=== PATIENT | female | born 1980 | race Caucasian/White ===

== ENCOUNTER → 2020-01-19 10:04 | Outpatient (CLI) | payer OTHER, SELFPAY ==
--- NOTE | ~2020-01-19 | MM_ITS ---
EXAMINATION: MM screening aditya BI w buffy HISTORY: Screening mammogram TECHNIQUE: Craniocaudal and mediolateral oblique 3-D tomosynthesis images were obtained and synthetic 2-D images were generated. CAD analysis was submitted and interpreted. COMPARISON: None, baseline BREAST PARENCHYMAL COMPOSITION: The breasts are heterogeneously dense, which may obscure small masses . FINDINGS: RIGHT BREAST: There is no evidence of suspicious mass, calcification, or architectural distortion to suggest malignancy. LEFT BREAST: An asymmetry is present in the posterior third of the central breast on the craniocaudal view 8 cm from the nipple. IMPRESSION: 1. Left breast asymmetry on the craniocaudal view. 2. Additional mammographic views and possible breast ultrasound are recommended to evaluate for malig patric and establish a baseline given that this is the first mammographic examination. BI-RADS Category 0: Incomplete: Needs additional imaging evaluation. Reviewed, dictated and finalized at location A. IMPRESSION: 1. Left breast asymmetry on the craniocaudal view. 2. Additional mammographic views and possible breast ultrasound are recommended to evaluate for malignancy and establish a baseline given that this is the fir st mammographic examination. BI-RADS Category 0: Incomplete: Needs additional imaging evaluation.
== END ==
PROVIDERS: Visit Provider Nurse Practitioner Psychiatric/Mental Health
DX: Z12.31 Encounter for screening mammogram for malignant neoplasm of breast (principal); R92.8 Other abnormal and inconclusive findings on diagnostic imaging of breast
CPT/HCPCS: 77063; 77067

== ENCOUNTER → 2020-01-30 14:02 | Outpatient (CLI) | payer OTHER, SELFPAY ==
--- NOTE | ~2020-01-30 | MMUS_ITS ---
EXAMINATION: MM diagnostic mammo unilat LT, US breast LT complete HISTORY: Follow-up left breast asymmetry TECHNIQUE: Additional 3-D tomosynthesis images of the left breast were performed and synthetic 2-D im ages were generated. CAD analysis was submitted and interpreted. High resolution left breast ultrasou nd was performed. COMPARISON: 01/19/2020 FINDINGS: MAMMOGRAPHIC FINDINGS: There are multiple focal asymmetries centered in the upper central aspect of the left breast which ar e obscured by dense fibroglandular tissue. There are no suspicious calcifications. ULTRASOUND: Left breast ultrasound: There are multiple simple and complicated cyst of the left breast, largest measuring 7 mm at 2:00, 3 cm from the nipple. There is a cluster of microcysts at 11:00, 6 cm from the nipple. There is an intr amammary lymph node at 11:00, 7 cm from the nipple measuring 9 mm. No suspicious masses are identifie d to suggest malignancy. IMPRESSION: 1. Multiple benign cysts and intramammary lymph nodes identified by ultrasound likely corresponding t o mammographic findings. 2. Recommend 6 month follow-up diagnostic left mammogram and ultrasound. BI-RADS category 3, probably benign findings. Reviewed, dictated and finalized at location A. IMPRESSION: 1. Multiple benign cysts and intramammary lymph nodes identified by ultrasound likely corresponding to mammographic findings. 2. Recommend 6 month follow-up diagnostic left mammogram and ultrasound. BI-RADS category 3, probably benign findings.
== END ==
PROVIDERS: Visit Provider Nurse Practitioner Psychiatric/Mental Health
DX: N64.89 Other specified disorders of breast (principal); R92.8 Other abnormal and inconclusive findings on diagnostic imaging of breast
CPT/HCPCS: 76641; 77065

== ENCOUNTER → 2021-02-07 10:24 | Outpatient (CLI) | payer OTHER, SELFPAY ==
--- NOTE | ~2021-02-07 | MM_ITS ---
EXAMINATION: MM screening aditya BI w buffy HISTORY: Screening mammogram, overdue for follow-up of probably benign left breast masses TECHNIQUE: Craniocaudal and mediolateral oblique 3-D tomosynthesis images were obtained and synthetic 2-D images were generated. CAD analysis was submitted and interpreted. COMPARISON: 01/30/2020, 01/29/2020 BREAST PARENCHYMAL COMPOSITION: The breasts are heterogeneously dense, which may obscure small masses . FINDINGS: RIGHT BREAST: There is no evidence of suspicious mass, calcification, or architectural distortion to suggest malignancy. There has been no significant interval change. LEFT BREAST: There are obscured masses in the middle and posterior third of the upper outer quadrant of the left breast. Some appear decrease in size since the comparison examination and some appear new . IMPRESSION: 1. Left breast masses. 2. Additional mammographic views and possible breast ultrasound are recommended. BI-RADS Category 0: Incomplete: Needs additional imaging evaluation. Reviewed, dictated and finalized at location A. IMPRESSION: 1. Left breast masses. 2. Additional mammographic views and possible breast ultrasound are recommended . BI-RADS Category 0: Incomplete: Needs additional imaging evaluation.
== END ==
PROVIDERS: PCP Family Medicine Sports Medicine; Visit Provider Family Medicine Sports Medicine
DX: Z12.31 Encounter for screening mammogram for malignant neoplasm of breast (principal); R92.8 Other abnormal and inconclusive findings on diagnostic imaging of breast
CPT/HCPCS: 77063; 77067

== ENCOUNTER → 2022-02-13 10:12 | Outpatient (CLI) | payer BC, SELFPAY ==
--- NOTE | ~2022-02-13 | MM_ITS ---
EXAMINATION: MM screening aditya BI w buffy HISTORY: Screening TECHNIQUE: Craniocaudal and mediolateral oblique 3-D tomosynthesis images were obtained and synthetic 2-D images were generated. CAD analysis was submitted and interpreted. COMPARISON: Comparison to multiple prior studies sequentially, with oldest reviewed study dated 07/2020. BREAST PARENCHYMAL COMPOSITION: The breasts are heterogeneously dense, which may obscure small masses . FINDINGS: There are developing bilateral breast asymmetries centered in the central and lateral aspec t of the right breast on CC and exaggerated CC views and the upper central aspect of the left breast. IMPRESSION: 1. Developing bilateral breast asymmetries. 2. Additional mammographic views and possible breast ultrasound are recommended. BI-RADS Category 0: Incomplete: Needs additional imaging evaluation. Reviewed, dictated and finalized at location A. IMPRESSION: 1. Developing bilateral breast asymmetries. 2. Additional mammographic views and possible breast ultrasound are recommended . BI-RADS Category 0: Incomplete: Needs additional imaging evaluation.
== END ==
PROVIDERS: PCP Family Medicine Sports Medicine; Visit Provider Family Medicine Sports Medicine
DX: Z12.31 Encounter for screening mammogram for malignant neoplasm of breast (principal)
CPT/HCPCS: 77063; 77067

== ENCOUNTER → 2022-02-23 09:11 | Outpatient (CLI) | payer BC, SELFPAY ==
--- NOTE | ~2022-02-23 | MMUS_ITS ---
EXAMINATION: MM diagnostic aditya BI w buffy, US breast BI complete HISTORY: Follow-up breast asymmetries TECHNIQUE: Additional 3-D tomosynthesis images of the breasts were performed and synthetic 2-D images were generated. CAD analysis was submitted and interpreted. High resolution complete bilateral breas t ultrasound was performed. COMPARISON: Comparison to multiple prior studies sequentially, with oldest reviewed study dated 07/2020. BREAST PARENCHYMAL COMPOSITION: The breasts are heterogenously dense, which may obscure small masses FINDINGS: MAMMOGRAPHIC FINDINGS: There are no discrete masses, suspicious cluster of calcifications or architectural distortion in the right breast to suggest malignancy. There is a focal mass in the upper central aspect of the left br east posteriorly, best seen on CC view. ULTRASOUND: Complete bilateral US of all 4 quadrants of the breasts and retroareolar region was reviewed. Right breast: At 12:00, 6 cm from the nipple there is a cluster of microcysts measuring 8 mm. At 12:0 0, 6 cm from the nipple there is a cluster of microcysts measuring 3 mm. At 12:00, 5 cm from the nipp le there is an oval hypoechoic mass measuring 7 mm, likely benign with parallel orientation, no inter nal vascularity and no posterior features. At 12:00, 3 cm from the nipple there is a 7 mm cyst. At 2: 00, 3 cm from the nipple there is a 4 mm cyst. At 8:00, 5 cm from the nipple there is an 8 mm complic ated at 9:00, 4 cm from the nipple there is a cluster of cysts measuring up to 6 mm. O'clock, 4 cm from the nipple there is an oval circumscribed hypoechoic mass with low level internal echoes measuring 6 mm. No internal vascularity or posterior features, likely benign. At 10:00, 8 cm f rom the nipple there is a 4 mm cyst. At 10:00, 7 cm from the nipple there is a 6 mm hypoechoic mass w ith echogenic hilum, possibly benign intramammary lymph node or cluster of microcysts. At 11:00, 8 cm from the nipple there is a probable benign intramammary lymph node measuring 8 mm. At 11:00, 6 cm fr om the nipple there is a cluster of cysts measuring up to 9 mm. There are the nipple there is a compl icated cyst measuring 7 mm. Left breast: There are multiple cysts of the left breast. There is a cluster of microcysts at 12:00, 5 cm from the nipple measuring 1 cm greatest dimension. At 1:00, 5 cm from the nipple there is an ova l hypoechoic mass measuring 8 mm with echogenic hilum, possibly intramammary lymph node. At 3:00, 4 c m from the nipple there is an oval hypoechoic mass measuring 6 mm, likely benign. At 10:00, 7 cm from the nipple there is an oval hypoechoic mass with echogenic hilum measuring 8 mm, likely benign lymph node. At 11:00, 3 cm from the nipple there is an oval hypoechoic mass with parallel orientation, no posterior features or internal vascularity, likely benign. Cyst. IMPRESSION: 1. Multiple bilateral breast masses demonstrated by ultrasound, likely benign, as described above. 2. 6 month follow-up bilateral breast ultrasound recommended. BI-RADS category 3, probably benign findings. Reviewed, dictated and finalized at location A. IMPRESSION: 1. Multiple bilateral breast masses demonstrated by ultrasound, likely benign, as described above. 2. 6 month follow-up bilateral breast ultrasound recommended. BI-RADS category 3, probably benign findings.
== END ==
PROVIDERS: Visit Provider Family Medicine Sports Medicine
DX: R92.8 Other abnormal and inconclusive findings on diagnostic imaging of breast (principal)
CPT/HCPCS: 76641; 77062; 77066; G0279

== ENCOUNTER 2024-09-15 10:26 | Outpatient (CLI) | payer BC, SELFPAY ==
--- NOTE | ~2024-09-15 | MR_ITS ---
MRI of the brain Clinical History: Dizziness, dysarthria Technique: Axial and sagittal T1-weighted images were acquired. These were followed by axial T2-weigh nathan, diffusion weighted, gradient, and FLAIR images. Following intravenous administration of 15 cc M ultiHance gadolinium, T1-weighted fat-sat imaging was performed in the axial and coronal planes. Findings: There is no abnormal signal in the brain parenchyma. No acute infarct, internal hemorrhage or mass lesion seen. Ventricles and subarachnoid spaces are unremarkable. Orbits are unremarkable. Paranasal sinuses and m astoid air cells are clear. Major intracranial flow voids are intact. Sagittal midline structures are intact. No abnormal postcontrast enhancement. IMPRESSION: Unremarkable exam. Reviewed, dictated and finalized at location M. BULANCE ASSISTANT IMPRESSION: Unremarkable exam.
== END 2024-09-15 10:27 | disposition home or self-care (01) ==
PROVIDERS: PCP Nurse Practitioner; Visit Provider Nurse Practitioner
DX: R47.1 Dysarthria and anarthria (principal)
CPT/HCPCS: 70553; A9577

== ENCOUNTER 2024-11-10 08:45 | Outpatient (CLI) | payer BC, SELFPAY ==
--- NOTE | ~2024-11-10 | MR_ITS ---
EXAMINATION: MR cervical spine wo/w con, MRA neck wo/w con, MR thoracic spine wo/w con DATE: 11/10/2024 10:49 INDICATION: Hyperreflexia. Vertebral artery thrombosis. TECHNIQUE: 1. Magnetic resonance imaging (MRI) of the cervical spine was performed without and with 16 mL Multih ance intravenous contrast. Sequences included sagittal T2-weighted FSE, sagittal T2-weighted FS FSE, sagittal T1-weighted FSE, axial T2-weighted FSE, and axial T1-weighted SE. Postcontrast sequences inc luded sagittal T1-weighted FS FSE, and axial T1-weighted FS SE. 2. MRI of the thoracic spine was performed without and with the identical 16 mL MultiHance intravenou s contrast bolus. Sagittal localizer T1-weighted FSE of the cervicothoracic spine was obtained. Seque nces included sagittal T2-weighted FSE, sagittal T2-weighted FS FSE, sagittal T1-weighted FSE and axi al T1-weighted SE. Postcontrast sequences included axial T2-weighted FSE, sagittal T1-weighted FS FSE , and axial T1-weighted FS SE. 3. Magnetic resonance angiography (MRA) of the neck was performed without and with the identical 16 m L Multihance intravenous contrast bolus. Sequences included axial 2D-time of flight T1-weighted FSPGR and coronal T1-weighted FSPGR without and with intravenous contrast. COMPARISON: None. FINDINGS: Neck MR angiogram: The visualized aortic arch and the great vessels arising from the arch are normal in caliber with no hemodynamically significant stenosis or dissection. There is 0% stenosis of the right and left caroti d bulbs relative to normal distal artery lumen diameter (NASCET criteria). The left vertebral artery is mildly dominant with no hemodynamically significant stenosis. Cervical spine: Straightening of the normal cervical lordosis. Vertebral body heights are normal. Bone marrow signa l intensity is normal. Moderate disc height loss at C4-C5 and C5-C6. Annular fissure at C5-C6. Cord s ignal intensity is normal. No abnormally enhancing lesions identified. The following disc levels are specifically discussed: C2-C3: The disc does not extend beyond the endplate margin. There is no uncovertebral joint osteoarth ritis. There is right and mild left facet joint osteoarthritis. There is no neural foraminal stenosis . There is no central canal stenosis. C3-C4: Disc is bulging. There is mild bilateral uncovertebral joint osteoarthritis. There is moderate bilateral facet joint osteoarthritis. There is mild left neural foraminal stenosis. There is mild ce ntral canal stenosis. C4-C5: Disc is bulging. There is no uncovertebral joint osteoarthritis. There is mild bilateral facet joint osteoarthritis. There is no neural foraminal stenosis. There is mild central canal stenosis. C5-C6: Disc is bulging, eccentric to the left with mild indentation of the left ventral surface of th e cord. There is mild right and moderate left uncovertebral joint osteoarthritis. There is mild right and moderate left facet joint osteoarthritis. There is mild left and minimal right neural foraminal stenosis. There is mild central canal stenosis. C6-C7: The disc does not extend beyond the endplate margin. There is mild left uncovertebral joint os teoarthritis. There is mild bilateral facet joint osteoarthritis. There is mild left neural foraminal stenosis. There is no central canal stenosis. C7-T1: The disc does not extend beyond the endplate margin. There is no uncovertebral joint osteoarth ritis. There is moderate right and moderate left facet joint osteoarthritis. There is no neural lorena inal stenosis. There is no central canal stenosis. Thoracic spine: 5 degrees thoracic levocurvature. Sagittal alignment is normal. Vertebral body and disc heights are n ormal. There is normal bone marrow signal throughout. The discs do not extend beyond the endplate mar gins. There is no central canal stenosis. The conus terminates at L2. There is normal cord signal thr oughout. There are no abnormally enhancing lesions identified. There is multilevel mild to moderate t horacic facet osteoarthritis greatest in the mid to lower thoracic spine. No significant neural lorena inal stenosis. Mild atelectasis in the dependent lungs. Paravertebral soft tissues are unremarkable. IMPRESSION: 1. Mild cervical spondylosis. 2. 5 degrees thoracic levocurvature with multilevel mild to moderate facet osteoarthritis. 3. Unremarkable MR angiogram of the neck with no significant stenosis of the bilateral vertebral lelo ambreen and 0% stenosis of the right and left carotid bulbs relative to normal distal artery lumen diame ter (NASCET criteria). Reviewed, dictated and finalized at location B. THESIOLOGY FELLOW IMPRESSION: 1. Mild cervical spondylosis. 2. 5 degrees thoracic levocurvature with multilevel mild to moderate facet oste oarthritis. 3. Unremarkable MR angiogram of the neck with no significant stenosis of the bi lateral vertebral arteries and 0% stenosis of the right and left carotid bulbs relative to normal distal artery lumen diameter (NASCET criteria). IMPRESSION: 1. Mild cervical spondylosis. 2. 5 degrees thoracic levocurvature with multilevel mild to moderate facet oste oarthritis. 3. Unremarkable MR angiogram of the neck with no significant stenosis of the bi lateral vertebral arteries and 0% stenosis of the right and left carotid bulbs relative to normal distal artery lumen diameter (NASCET criteria).
== END 2024-11-10 08:46 | disposition home or self-care (01) ==
PROVIDERS: PCP Nurse Practitioner
DX: R29.2 Abnormal reflex (principal); I65.09 Occlusion and stenosis of unspecified vertebral artery; M43.8X4 Other specified deforming dorsopathies, thoracic region; M47.894 Other spondylosis, thoracic region; M43.02 Spondylolysis, cervical region
CPT/HCPCS: 70549; 72156; 72157; A9577